=== PATIENT | male | born 1960 | race Caucasian/White ===

== ENCOUNTER 2024-01-16 14:32 | Outpatient (CLI) | payer BC, SELFPAY ==
--- NOTE | ~2024-01-16 | US_ITS ---
EXAMINATION: US renal BI DATE: 01/16/2024 14:45 INDICATION: Chronic kidney disease stage IIIa TECHNIQUE: Multiple ultrasound grayscale images of the kidneys were obtained. COMPARISON: None. FINDINGS: The right kidney measures 11.6 x 6.2 x 6.3 cm. The left kidney measures 11.7 x 5.9 x 6.7 cm. The kidn eys demonstrate normal parenchymal echogenicity. There is no hydronephrosis. The bladder is normal. IMPRESSION: 1. Normal kidneys. No hydronephrosis. Reviewed, dictated and finalized at location E.
== END 2024-01-16 14:33 ==
LOC: GOSHIMG 14:33
PROVIDERS: PCP Emergency Medicine; Visit Provider Internal Medicine Nephrology
DX: N18.31 Chronic kidney disease, stage 3a (principal)
CPT/HCPCS: 76775